=== PATIENT | female | born 1985 | race American Indian/Alaskan Native ===

== ENCOUNTER → 2017-11-10 | Outpatient (CLI) | payer OTHER ==
[~2017-11-10] MED LIST: ALBU.083IS IH; ALBU90OI; ALBU90OI INH; AMIT50; AMITRIPTYLINE HCL; AMOCLA875 PO; AZIT250 PO; BUSP15; Bactrim Ds Tab1 EACH PO; CEPH500 PO; CITA20; CLON1 PO; CYCL10; CYCL10 PO; DIPH50 PO; DOXY100 PO; DULO30 PO; DULO60; ERYT.5TO OS; FAMO20; HYDACE10B PO; HYDACE5; HYDACE5 PO; HYDACE5325 PO; HYDMOR2 PO; HYDPAM50 PO; IBUP600 PO; IBUP800 PO; KETO10 PO; LACT10SY PO; LAMO25 PO; LEVFLO500 PO; LEVSOD100 PO; LEVSOD150 PO; LEVSOD75 PO; LORA1 PO; LORA2 PO; Loxapine10 MG PO; MAGCIT300 PO; META800 PO; METF500 PO; MSM1000; MULVITMINE; MULVITMINE PO; NAPR500 PO; Norco 5-325 Ta1 EACH PO; ONDA4ODT MM; OXYACE5T PO; PERM5TC TOP; POTASSIUM 10 MEQ; POTCHL20ER PO; PRAM.5 PO; PRAZ2 PO; PRED20; PRED20 PO; PREDNISONE 20 MG PO; PREG100 PO; PROM25; PROM25 PO; Percocet 10-321 EACH PO; Percocet 5-3251 EACH PO; RANI150 PO; RXERYTOPTH OP; RXHYDACE PO; RXHYDMOR2 PO; RXLORA1 PO; RXOXYACE PO; RXPRED10; SEASONAL; SERT50 PO; SULTRISS PO; TOPI25; TOPI25 PO; TRAM50 PO; Valium5 MG PO; Veetids 500500 MG PO; Zofran Odt4 MG SL; [UNRECOGNIZED DRUG - OTHER]; [UNRECOGNIZED DRUG - OTHER]
[2017-11-10 19:35] LABS: Free Thyroxine 1.31 ng/dL (0.70-1.60)
[2017-11-10 19:37] LABS: Thyroid Stimulating Hormone 0.783 uIU/mL (0.360-4.800); Triiodothyronine, Free 2.46 pg/mL (2.18-3.98)
== END ==
LOC: LAB 17:20 → LAB SHORT 17:20
PROVIDERS: Physician Assistant
DX: E03.9 Hypothyroidism, unspecified (principal)
CPT/HCPCS: 84439; 84443; 84481

== ENCOUNTER → 2018-10-02 | Outpatient (CLI) | payer OTHER ==
[~2018-10-02] MED LIST changes: +LAMO100 PO; +LEVSOD125 PO; +Motion Sickness25 M1 PO
== END | disposition home or self-care (01) ==
LOC: LAB SHORT 15:28 → LAB 15:28
DX: N89.8 Other specified noninflammatory disorders of vagina (principal)
CPT/HCPCS: 87070; 87077; 87186; 87205

== ENCOUNTER 2019-03-07 13:40 | Emergency (ER) | payer OTHER ==
[~2019-03-07] VITALS: Ht 180.3 cm; Wt 97.5 kg
[2019-03-07] MEDS ORDERED: ESCI20 PO (14:10)
[2019-03-07] MEDS ORDERED: Bactrim Ds Tab1 EACH PO (17:23)
[2019-03-07] MEDS ORDERED: Roxicodone5 MG PO (17:26)
== END 2019-03-07 17:36 | disposition home or self-care (01) ==
LOC: ER 13:40
DX: N76.4 Abscess of vulva (principal); E03.9 Hypothyroidism, unspecified; Z79.899 Other long term (current) drug therapy; Z87.891 Personal history of nicotine dependence
CPT/HCPCS: 96372; 99282-25; A9270; A9270-GY; J1170

== ENCOUNTER 2019-04-24 07:48 | Emergency (ER) | payer OTHER ==
[~2019-04-24] VITALS: Ht 180.3 cm; Wt 95.2 kg
[~2019-04-24 07:48] MED LIST changes: +ESCI20 PO; +Roxicodone5 MG PO
[2019-04-24] MEDS ORDERED: LAMO100 PO (08:15)
[2019-04-24] MEDS ORDERED: LEVSOD137 PO (08:16)
== END 2019-04-24 08:57 | disposition home or self-care (01) ==
LOC: ER 07:48
DX: M79.81 Nontraumatic hematoma of soft tissue (principal); R20.2 Paresthesia of skin; E03.9 Hypothyroidism, unspecified; Z87.891 Personal history of nicotine dependence
CPT/HCPCS: 99283

== ENCOUNTER 2019-08-10 16:32 | Emergency (ER) | payer OTHER ==
[~2019-08-10] VITALS: Ht 180.3 cm; Wt 97.5 kg
[~2019-08-10 16:32] MED LIST changes: +LEVSOD137 PO
[2019-08-10 18:19] LABS: BASOPHILS ABSOLUTE AUTO 0.06 K/mm3 (0.00-0.23); BASOPHILS PERCENT AUTO 0 % (0-2); EOSINOPHILS ABSOLUTE AUTO 0.07 K/mm3 (0.00-0.68); EOSINOPHILS PERCENT AUTO 1 % (0-6); Hematocrit 41.6 % (33.0-51.0); IMMATURE GRAN ABSOLUTE AUTO 0.03 K/mm3 (0.00-0.10); IMMATURE GRAN PERCENT AUTO 0 % (0-1); LYMPHOCYTES ABSOLUTE AUTO 1.29 K/mm3 (0.84-5.20); LYMPHOCYTES PERCENT AUTO 9 % (21-46); MONOCYTES ABSOLUTE AUTO 0.95 K/mm3 (0.16-1.47); MONOCYTES PERCENT AUTO 7 % (4-13); Mean Corpuscular HGB 29.2 pg (26.0-34.0); Mean Corpuscular HGB Conc 33.7 g/dL (31.5-36.5); Mean Corpuscular Volume 87 fL (80-100); Mean Platelet Volume 10.4 fL (9.1-12.4); NEUTROPHILS ABSOLUTE AUTO 12.31 K/mm3 (1.96-9.15); NEUTROPHILS PERCENT AUTO 84 % (41-73); Platelet Count 270 K/mm3 (150-400); RDW Coefficient Variation 12.1 % (11.7-14.2); RDW Standard Deviation 38.9 fL (35.1-46.3); White Blood Cell Count 14.71 K/mm3 (4.00-11.30)
[2019-08-10 18:42] LABS: Alanine Aminotransfer (ALT/SGP 28 U/L (12-78); Albumin, Blood 3.8 g/dL (3.4-5.0); Alk Phos 52 U/L (50-136); Anion Gap 6 mmol/L (6-16); Aspartate Aminotrans (AST/SGOT 22 U/L (12-37); Beta HCG, Quantitative, Serum <1 mIU/mL (0-3); Bilirubin, Total 1.4 mg/dL (0.1-1.0); Blood Urea Nitrogen 11 mg/dL (8-24); Bun/Creatinine Ratio 15.8 (12.0-20.0); CO2, Blood 22 mmol/L (21-32); Calcium, Blood 9.1 mg/dL (8.5-10.1); Chloride, Blood 109 mmol/L (98-108); Glomerular Filtration Rate >60 (60-); Glucose, Blood 86 mg/dL (70-99); Potassium, Blood 3.6 mmol/L (3.5-5.5); Sodium, Blood 137 mmol/L (136-145); Total Protein, Blood 7.8 g/dL (6.4-8.2)
[2019-08-10] MEDS ORDERED: ALPR.5 (19:36)
[2019-08-10 19:50] LABS: Bilirubin, Urine Neg (Neg); Blood, Urine 2+ (Neg); Glucose Qualitative, Urine Neg (Neg); Ketones, Urine 2+ (Neg); Leukocyte Esterase, Urine Neg (Neg); Nitrite, Urine Neg (Neg); Protein, Urine Neg (Neg); Urobilinogen, Urine NORM (Normal)
[2019-08-10 19:59] LABS: Appearance, Urine Clear (Clear); Color, Urine Yellow (P-Yellow)
[2019-08-10 20:01] LABS: Bacteria Rare /hpf; Red Blood Cells, Urine 0-2 /hpf (0-2); Squamous Epithelial Cells Rare /hpf (Few); White Blood Cells, Urine 0-2 /hpf (0-5)
[2019-08-10] MEDS ORDERED: Norco 5-325 Ta1 EACH PO (23:00)
[2019-08-10] MEDS ORDERED: IBUP600 PO (23:00)
== END 2019-08-10 23:53 | disposition home or self-care (01) ==
LOC: ER 16:32
PROVIDERS: Physician Assistant
DX: N83.201 Unspecified ovarian cyst, right side (principal); E03.9 Hypothyroidism, unspecified; Z79.899 Other long term (current) drug therapy; Z87.891 Personal history of nicotine dependence
CPT/HCPCS: 36415; 74177; 76830; 76856; 80053; 81001; 83690; 84702; 85025; 86850; 86900; 86901; 96374-59; 96375-59; 96376-59; 99284-25; A9270; J1170; J1885; J2405; J3010; Q9967

== ENCOUNTER 2019-08-14 08:11 | Emergency (ER) | payer OTHER ==
[~2019-08-14] VITALS: Ht 180.3 cm; Wt 95.2 kg
[~2019-08-14 08:11] MED LIST changes: +ALPR.5
[2019-08-14 09:25] LABS: BASOPHILS ABSOLUTE AUTO 0.05 K/mm3 (0.00-0.23); BASOPHILS PERCENT AUTO 1 % (0-2); EOSINOPHILS ABSOLUTE AUTO 0.16 K/mm3 (0.00-0.68); EOSINOPHILS PERCENT AUTO 2 % (0-6); Hematocrit 41.4 % (33.0-51.0); Hemoglobin 13.7 g/dL (11.5-16.0); IMMATURE GRAN ABSOLUTE AUTO 0.02 K/mm3 (0.00-0.10); IMMATURE GRAN PERCENT AUTO 0 % (0-1); LYMPHOCYTES ABSOLUTE AUTO 1.55 K/mm3 (0.84-5.20); LYMPHOCYTES PERCENT AUTO 23 % (21-46); MONOCYTES ABSOLUTE AUTO 0.59 K/mm3 (0.16-1.47); MONOCYTES PERCENT AUTO 9 % (4-13); Mean Corpuscular HGB Conc 33.1 g/dL (31.5-36.5); Mean Corpuscular Volume 88 fL (80-100); Mean Platelet Volume 10.5 fL (9.1-12.4); NEUTROPHILS ABSOLUTE AUTO 4.24 K/mm3 (1.96-9.15); NEUTROPHILS PERCENT AUTO 64 % (41-73); Platelet Count 275 K/mm3 (150-400); RDW Coefficient Variation 11.9 % (11.7-14.2); RDW Standard Deviation 38.8 fL (35.1-46.3); Red Blood Cell Count 4.73 M/mm3 (3.80-5.20); White Blood Cell Count 6.61 K/mm3 (4.00-11.30)
[2019-08-14 09:45] LABS: Anion Gap 3 mmol/L (6-16); Blood Urea Nitrogen 11 mg/dL (8-24); Bun/Creatinine Ratio 15.1 (12.0-20.0); CO2, Blood 28 mmol/L (21-32); Calcium, Blood 8.4 mg/dL (8.5-10.1); Chloride, Blood 110 mmol/L (98-108); Creatinine, Blood 0.73 mg/dL (0.40-1.00); Glomerular Filtration Rate >60 (60-); Glucose, Blood 95 mg/dL (70-99); Potassium, Blood 3.9 mmol/L (3.5-5.5); Sodium, Blood 141 mmol/L (136-145)
[2019-08-14] MEDS ORDERED: Norco 5-325 Ta1 EACH PO (10:28)
== END 2019-08-14 10:30 | disposition home or self-care (01) ==
LOC: ER 08:11
PROVIDERS: Physician Assistant
DX: N70.92 Oophoritis, unspecified (principal); N83.201 Unspecified ovarian cyst, right side; N83.511 Torsion of right ovary and ovarian pedicle; Z87.891 Personal history of nicotine dependence
CPT/HCPCS: 76830; 76857; 80048; 84703; 85025; 96361; 96374; 96375; 99284-25; J1885; J2405; J3010; J7030